=== PATIENT | female | born 1935 | race American Indian/Alaskan Native ===

== ENCOUNTER 2017-05-10 16:18 | Inpatient (IN) | payer MEDICARE, OTHER ==
[2017-05-10 16:18] VITALS: BMI 30.6
[2017-05-10 18:14] LABS: BASO % 0.3 % (0.0-2.0); EOS # 0.1 K/uL (0.0-0.7); EOS % 1.7 % (0.0-4.0); HEMATOCRIT 37.8 % (34.0-47.0); LYMPH % 21.7 % (20.0-40.0); MEAN CELL VOLUME 84.8 fL (81.0-99.0); MEAN CORPUSCULAR HEMOGLOBIN 27.2 pg (27.0-31.0); MEAN CORPUSCULAR HGB CONC 32.1 g/dL (33.0-37.0); MEAN PLATELET VOLUME 7.9 fL (7.2-11.7); MONO # 0.4 K/uL (0.0-0.8); MONO % 8.2 % (0.0-10.0); RED CELL DISTRIBUTION WIDTH 15.9 % (11.5-14.5); WHITE BLOOD COUNT 4.7 K/uL (4.8-10.8)
[2017-05-10 18:15] LABS: CHLORIDE 96 mmol/L (98-107); SODIUM 132 mmol/L (132-148)
[2017-05-10 18:17] LABS: CHOLESTEROL 207 mg/dL (0-199); POTASSIUM 6.1 mmol/L (3.6-5.2)
[2017-05-10 18:18] LABS: ALKALINE PHOSPHATASE 122 U/L (38-126); ALT/SGPT 15 U/L (9-52); AST/SGOT 32 U/L (14-36); BILIRUBIN,TOTAL 0.7 mg/dL (0.2-1.3); BLOOD UREA NITROGEN 42 mg/dL (7-17); CALCIUM 9.5 mg/dl (8.6-10.4); CARBON DIOXIDE 20 mmol/L (22-30); GFR AFRICAN-AMERICAN 30; GLUCOSE,RANDOM 92 mg/dL (65-105); TOTAL PROTEIN 8.8 g/dL (6.3-8.3)
[2017-05-10 18:28] LABS: ALB/GLOB RATIO 0.8 (1.0-2.1)
--- NOTE | 2017-05-10 19:08 | CT ---
PROCEDURE: CT HEAD WITHOUT CONTRAST. HISTORY: Dizzy. Left face and left arm numbness. COMPARISON: Comparison is made to 02/05/2016 TECHNIQUE: Axial computed tomography images were obtained through the head/brain without intravenous contrast. Radiation dose: Total exam DLP = 950.19 mGy-cm. This CT exam was performed using one or more of the following dose reduction techniques: Automated exposure control, adjustment of the mA and/or kV according to patient size, and/or use of iterative reconstruction technique. FINDINGS: HEMORRHAGE: No intracranial hemorrhage. BRAIN: No mass effect or edema. Mild atrophy and mild chronic microvascular white matter ischemic disease are again seen. VENTRICLES: Unremarkable. No hydrocephalus. CALVARIUM: Unremarkable. PARANASAL SINUSES: Unremarkable as visualized. No significant inflammatory changes. MASTOID AIR CELLS: Unremarkable as visualized. No inflammatory changes. OTHER FINDINGS: None. IMPRESSION: No evidence of acute intracranial hemorrhage intracranial collection territorial infarct mass effect or midline shift. Re- demonstration of mild atrophy and chronic microvascular white matter ischemic disease.
--- NOTE | 2017-05-10 19:14 | C.PDOC ---
Time Seen by Provider: 05/10/17 17:07 Chief Complaint (Nursing): Dizziness/Lightheaded History Per: Patient Onset/Duration Of Symptoms: Hrs (since this morning) Current Symptoms Are (Timing): Still Present Fall Associated With With Symptoms: No Severity: Moderate Additional History Per: Prior Records - Symptoms Of CVA Character Of Deficits: Left: Sensory Loss, Face: Sensory Loss, Arm: Sensory Loss Recent Head Trauma: No Past Medical History Reviewed: Historical Data, Nursing Documentation, Vital Signs Vital Signs: Last Vital Signs Temp 98.8 F 05/10/17 16:45 Pulse 66 05/10/17 16:45 Resp 18 05/10/17 16:45 BP 150/69 05/10/17 16:45 Pulse Ox 100 05/10/17 19:18 - Medical History PMH: Anemia, Arthritis, Asthma, Diverticulitis, Gastritis, HTN, Hyperlipidemia, Malignancy (left breast cancer) - [facility] Procedures OPEN AND OTHER LEFT HEMICOLECTOMY (11/03/13) PACKED CELL TRANSFUSION (11/03/13) URETERAL CATHETERIZATION (11/03/13) Family History: States: Unknown Family Hx - Social History Hx Tobacco Use: No Hx Alcohol Use: Yes (past smoker) Hx Substance Use: No - Immunization History Hx Tetanus Toxoid Vaccination: No Hx Influenza Vaccination: Yes Hx Pneumococcal Vaccination: Yes Review Of Systems Except As Marked, All Systems Reviewed And Found Negative. Constitutional: Negative for: Fever, Weakness Cardiovascular: Negative for: Chest Pain Respiratory: Negative for: Shortness of Breath Gastrointestinal: Negative for: Vomiting, Abdominal Pain Musculoskeletal: Negative for: Neck Pain Skin: Negative for: Rash Neurological: Positive for: Numbness (left face), Dizziness. Negative for: Weakness, Headache Physical Exam - Physical Exam Appears: Non-toxic, No Acute Distress Skin: Normal Color, Warm, Dry, No Rash Head: Atraumatic, Normacephalic Eye(s): bilateral: PERRL, EOMI Neck: Normal ROM, Supple Cardiovascular: Rhythm Regular Respiratory: Normal Breath Sounds, No Accessory Muscle Use Gastrointestinal/Abdominal: Soft, No Tenderness Back: No CVA Tenderness Extremity: Normal ROM Neurological/Psych: Oriented x3, Normal Motor ED Course And Treatment - Laboratory Results Result Diagrams: 05/10/17 18:02 05/10/17 19:17 Lab Interpretation: Abnormal ECG: Interpreted By Me, Viewed By Me ECG Rhythm: Sinus Rhythm, 1st Degree HB ECG Interpretation: No Acute Changes Rate From EC O2 Sat by Pulse Oximetry: 100 Pulse Ox Interpretation: Normal - Radiology CXR: Interpreted by Me, Viewed By Me CXR Interpretation: Yes: No Acute Disease - CT Scan/US CT head Other Rad Studies (CT/US): Read By Radiologist, Radiology Report Reviewed CT/US Interpretation: IMPRESSION: No evidence of acute intracranial hemorrhage intracranial collection territorial infarct mass effect or midline shift. Re- demonstration of mild atrophy and chronic microvascular white matter ischemic disease. Disposition - Disposition Disposition Time: 19:55 Condition: SERIOUS - Clinical Impression Clinical Impression: Left facial numbness, Hyperkalemia, Worsening renal function Physician Patient Turnover Patient Signed Over To: Kodi Osman Handoff Comments: to reassess pt and call PMD for admission.
[2017-05-10] MEDS: Sodium Chloride 0.9% 1,000 ML IV ONE ×2 (19:18→19:24)
[2017-05-10] MEDS ORDERED: Sodium Chloride 0.9% 500 ML IV ONE (19:18)
[2017-05-10 19:30] LABS: CALCIUM 9.1 mg/dl (8.6-10.4)
[2017-05-10 19:31] LABS: POTASSIUM 5.8 mmol/L (3.6-5.2)
[2017-05-10] MEDS: Dextrose 5%/0.45% NS 1,000 ML IV SCH (23:15)
--- NOTE | 2017-05-10 23:23 | CP.PCM.HP ---
History of Present Illness - History of Present Illness History of Present Illness: CC: Dizziness,Left facial numbness, Hyperkalemia, Worsening renal function HPI: pt is an elderly AA female well known to me with PMH of SLE, HTN, Diverticuloisis, complaint with diet, medication and follow up, today she developed dizziness described as spinning sensation like room is spinning around her along with left sided numbness of face, pt was seen by me in office and advised to come here in hospital for further evalaution pt denies any tingling, numbess in feet, she margaux cough, sore throat, chest pain, abdominal pain, nausea/ vomitting, headache Present on Admission - Present on Admission Any Indicators Present on Admission: Yes Review of Systems - Review of Systems Systems not reviewed;Unavailable: Acuity of Condition - Constitutional Constitutional: Fatigue, Lethargy. absent: As Per HPI, Anorexia, Chills, Daytime Sleepiness, Excessive Sweating, Fever, Frequent Falls, Headache, Increased Appetite, Malaise, Night Sweats, Snoring, Sleep Apnea, Weight Gain, Weight Loss, Weakness, Other - EENT Eyes: absent: As Per HPI, Blind Spots, Blurred Vision, Change in Vision, Decreased Night Vision, Diplopia, Discharge, Dry Eye, Exophthalmos, Floaters, Irritation, Itchy Eyes, Loss of Peripheral Vision, Pain, Photophobia, Requires Corrective Lenses, Sees Flashes, Spots in Vision, Tunnel Vision, Other Visual Disturbances, Loss of Vision, Other Nose/Mouth/Throat: absent: As Per HPI, Epistaxis, Nasal Congestion, Nasal Discharge, Nasal Obstruction, Nasal Trauma, Nose Pain, Post Nasal Drip, Sinus Pain, Sinus Pressure, Bleeding Gums, Change in Voice, Dental Pain, Dry Mouth, Dysphagia, Halitosis, Hoarsness, Lip Swelling, Mouth Lesions, Mouth Pain, Odynophagia, Sore Throat, Throat Swelling, Tongue Swelling, Facial Pain, Neck Pain, Neck Mass, Other - Cardiovascular Cardiovascular: absent: As Per HPI, Acrocyanosis, Chest Pain, Chest Pain at Rest , Chest Pain with Activity, Claudication, Diaphoresis, Dyspnea, Dyspnea on Exertion, Edema, Irregular Heart Rhythm, Pain Radiating to Arm/Neck/Jaw, Leg Edema, Leg Ulcers, Lightheadedness, Orthopnea, Palpitations, Paroxysmal Nocturnal Dyspnea, Pedal Edema, Radiating Pain, Rapid Heart Rate, Slow Heart Rate, Syncope, Other - Respiratory Respiratory: absent: As Per HPI, Cough, Dyspnea, Hemoptysis, Dyspnea on Exertion , Wheezing, Snoring, Stridor, Pain on Inspiration, Chest Congestion, Excessive Mucous Production, Change in Mucous Color, Pain with Coughing, Other - Gastrointestinal Gastrointestinal: absent: As Per HPI, Abdominal Pain, Belching, Bloating, Change in Bowel Habits, Change in Stool Character, Coffee Ground Emesis, Constipation, Cramping, Diarrhea, Dyspepsia, Dysphagia, Early Satiety, Excessive Flatus, Fecal Incontinence, Heartburn, Hematemesis, Hematochezia, Loose Stools, Melena, Nausea, Odynophagia, Temesmus, Vomiting, Other - Genitourinary Genitourinary: absent: As Per HPI, Change in Urinary Stream, Difficulty Urinating, Dysuria, Flank Pain, Hematuria, Pyuria, Nocturia, Urinary Incontinence, Urinary Frequency, Urinary Hesitance, Urinary Urgency, Voiding Freq/Small Amts, Freq UTI, Hx Renal/Bladder Calculi, Hx /Renal Surgery, Bladder Distension, Other - Musculoskeletal Musculoskeletal: Arthralgias, Limited Range of Motion, Numbness. absent: As Per HPI, Abnormal Gait, Atrophy, Back Pain, Deformity, Joint Swelling, Loss of Height, Muscle Cramps, Muscle Weakness, Myalgias, Neck Pain, Radiating Pain into Limb, Stiffness, Tingling, Other - Integumentary Integumentary: Dry Skin, Erythema, Rash - Neurological Neurological: Dizziness, Numbness, Focal Weakness - Psychiatric Psychiatric: absent: As Per HPI, Abnormal Sleep Pattern, Anhedonia, Anxiety, Auditory Hallucinations, Behavioral Changes, Change in Appetite, Change in Libido, Confusion, Depression, Difficulty Concentrating, Hallucinations, Homicidal Ideation, Hopelessness, Irritability, Memory Loss, Mood Swings, Panic Attacks, Paranoia, Suicidal Ideation, Visual Hallucinations, Tactile Hallucinations, Other Past Patient History - Infectious Disease Hx of Infectious Diseases: None - Past Medical History & Family History Past Medical History?: Yes - Past Social History Smoking Status: Former Smoker - CARDIAC Hx Hypertension: Yes - PULMONARY Hx Asthma: Yes - NEUROLOGICAL Hx Neurological Disorder: Yes Hx Vertigo: Yes - HEENT Hx HEENT Problems: No - RENAL Hx Chronic Kidney Disease: No - ENDOCRINE/METABOLIC Hx Endocrine Disorders: Yes Hx Systemic Lupus Erythematosus: Yes - HEMATOLOGICAL/ONCOLOGICAL Hx Anemia: Yes - INTEGUMENTARY Hx Dermatological Problems: No - MUSCULOSKELETAL/RHEUMATOLOGICAL Hx Arthritis: Yes - GASTROINTESTINAL Hx Diverticulitis: Yes Hx Gastritis: Yes - GENITOURINARY/GYNECOLOGICAL Hx Genitourinary Disorders: No - PSYCHIATRIC Hx Substance Use: No - SURGICAL HISTORY Hx Surgeries: Yes Hx Hysterectomy: Yes Hx Mastectomy: Yes (LEFT) Other/Comment: COLON resection - ANESTHESIA Hx Anesthesia: Yes Hx Anesthesia Reactions: No Hx Malignant Hyperthermia: No Meds Allergies/Adverse Reactions: Allergies Allergy/AdvReac Type Severity Reaction Status Date / Time No Known Allergies Allergy Verified 11/13/16 04:47 Physical Exam - Constitutional Appears: No Acute Distress - Head Exam Head Exam: ATRAUMATIC, NORMAL INSPECTION, NORMOCEPHALIC - Eye Exam Eye Exam: EOMI, Normal appearance, PERRL Pupil Exam: NORMAL ACCOMODATION, PERRL - Respiratory Exam Respiratory Exam: Decreased Breath Sounds, Rales, Rhonchi - Cardiovascular Exam Cardiovascular Exam: REGULAR RHYTHM - GI/Abdominal Exam GI & Abdominal Exam: Normal Bowel Sounds, Soft. absent: Tenderness - Neurological Exam Neurological exam: Alert, Normal Gait, Oriented x3 - Psychiatric Exam Psychiatric exam: Normal Affect, Normal Mood - Skin Skin Exam: Erythema, Rash Results - Vital Signs Recent Vital Signs: Last Vital Signs Temp 97.7 F 05/10/17 20:53 Pulse 72 05/10/17 22:28 Resp 20 05/10/17 22:28 BP 150/79 05/10/17 22:28 Pulse Ox 99 05/10/17 22:28 - Labs Result Diagrams: 05/10/17 18:02 05/10/17 19:17 Assessment & Plan (1) SLE (systemic lupus erythematosus) Status: Acute (2) Left facial numbness Assessment and Plan: facial symmetry is intact rule out CVA in post fossa TIA seizure precautions neuro check admit pt Status: Acute (3) Hypertension Status: Chronic
--- NOTE | 2017-05-11 08:32 | RAD ---
HISTORY: Dizzy. Left face numbness. COMPARISON: No prior. FINDINGS: LUNGS: Hyperinflation suggestive for COPD and or emphysematous changes. Some patchy increased markings at the lung bases. Small nodular density in the right midlung zone may represent vessel on end. Right paratracheal prominence may represent prominent vasculature. PLEURA: As above. CARDIOVASCULAR: Tortuous aorta. Mild cardiomegaly. Calcification at the aortic knob. OSSEOUS STRUCTURES: Degenerative changes in the spine and shoulders. VISUALIZED UPPER ABDOMEN: Normal. OTHER FINDINGS: None. IMPRESSION: Hyperinflation suggestive for COPD and or emphysematous changes. Some patchy increased markings at the lung bases. Small nodular density in the right midlung zone may represent vessel on end. Right paratracheal prominence may represent prominent vasculature.
[2017-05-11] MEDS: Metoprolol Succinate 50 mg XL Tab PO SCH (10:39)
[2017-05-11] MEDS: Dextrose 5%/0.45% NS 1,000 ML IV SCH (10:39)
[2017-05-11] MEDS: Pantoprazole 40 mg EC Tab PO SCH (10:39)
--- NOTE | 2017-05-11 14:20 | MRI ---
PROCEDURE: MRI BRAIN WITHOUT CONTRAST HISTORY: facial numbness COMPARISON: 03/03/2016 TECHNIQUE: Multiplanar, multisequence MR images of the brain were obtained without intravenous contrast enhancement. FINDINGS: HEMORRHAGE: No appreciable acute intracranial hemorrhage. There is a single tiny focus of hemosiderin seen on the gradient images in the posterior parietal periventricular region, new from prior study. No other area of hemosiderin is clearly seen. DWI: No evidence of an acute or early subacute infarction. BRAIN PARENCHYMA: Stable mild diffuse cerebral atrophy is noted. No mass effect is identified. Stable mild small vessel changes are seen in the white matter tracts. No cerebellopontine angle mass is noted. No cortical effacement is seen. VENTRICLES: Unremarkable. No hydrocephalus. CRANIUM: Unremarkable. ORBITS: Grossly unremarkable. PARANASAL SINUSES/MASTOIDS: Mild mucosal changes are seen in the sinuses. VASCULAR SYSTEM: Skull base flow voids intact. OTHER FINDINGS: Mastoid air cells are stable. Posterior nasopharynx is unremarkable. IMPRESSION: No evidence of recent infarct. Stable mild cerebral cortical atrophy and small vessel changes. Single tiny nonspecific focus of hemosiderin in the posterior left periventricular white matter.
[2017-05-11 18:01] LABS: POTASSIUM 5.1 mmol/L (3.6-5.2)
[2017-05-11 18:04] LABS: CALCIUM 8.6 mg/dl (8.6-10.4)
--- NOTE | 2017-05-11 22:45 | CP.PCM.PN ---
Subjective - Date & Time of Evaluation Date of Evaluation: 05/11/17 Objective - Vital Signs/Intake and Output Vital Signs (last 24 hours): Temp Pulse Resp BP Pulse Ox 97.9 F 69 20 149/72 99 05/11/17 15:47 05/11/17 15:47 05/11/17 15:47 05/11/17 15:47 05/11/17 15:47 - Medications Medications: Current Medications Amlodipine Besylate (Norvasc) 5 mg PO DAILY [facility] Last Admin: 05/11/17 10:39 Dose: 5 mg Aspirin (Aspirin Chewable) 81 mg PO DAILY [facility] Last Admin: 05/11/17 10:39 Dose: 81 mg Ezetimibe (Zetia) 10 mg PO DAILY [facility] Last Admin: 05/11/17 10:39 Dose: 10 mg Heparin Sodium (Porcine) (Heparin) 5,000 units SC Q8 [facility] Last Admin: 05/11/17 22:08 Dose: 5,000 units Hydroxychloroquine Sulfate (Plaquenil) 200 mg PO BID [facility] Last Admin: 05/11/17 18:30 Dose: 200 mg Dextrose/Sodium Chloride (Dextrose 5%/0.45% Ns 1000 Ml) 1,000 mls @ 80 mls/hr IV .[id number] [facility] Last Admin: 05/11/17 10:39 Dose: 80 mls/hr Metoprolol Succinate (Toprol Xl) 50 mg PO DAILY [facility] Last Admin: 05/11/17 10:39 Dose: 50 mg Pantoprazole Sodium (Protonix Ec Tab) 40 mg PO DAILY [facility] Last Admin: 05/11/17 10:39 Dose: 40 mg - Labs Labs: 05/11/17 17:35 PT 11.0 SECONDS (9.7-12.2) 05/10/17 18:02 INR 1.0 05/10/17 18:02 APTT 43 SECONDS (21-34) H 05/10/17 18:02 Assessment and Plan (1) SLE (systemic lupus erythematosus) Status: Acute (2) Left facial numbness Status: Acute (3) Hypertension Status: Chronic
[2017-05-12] MEDS: Dextrose 5%/0.45% NS 1,000 ML IV SCH (04:30)
[2017-05-12 04:37] VITALS: RESP 20
[2017-05-12 09:03] VITALS: BP 156/68; TEMP 98.1
[2017-05-12] MEDS: Metoprolol Succinate 50 mg XL Tab PO SCH (09:33)
[2017-05-12] MEDS: Pantoprazole 40 mg EC Tab PO SCH (09:33)
--- NOTE | 2017-05-12 11:06 | CP.PCM.PN ---
Subjective - Date & Time of Evaluation Date of Evaluation: 05/12/17 Time of Evaluation: 10:45 - Subjective Subjective: Pt seen and examined today , denies any chest pain , sob, palpitations, dizziness, numbness/ tinglings to the face resolved No overnight events recorded on monitor No overnight events reported by RN BUN/CR - improved - 33/1.6<40/1.9 Objective - Vital Signs/Intake and Output Vital Signs (last 24 hours): Temp Pulse Resp BP Pulse Ox 98.1 F 73 20 156/68 H 98 05/12/17 09:02 05/12/17 09:02 05/12/17 09:02 05/12/17 09:02 05/12/17 09:02 Intake and Output: 05/12/17 05/12/17 06:59 18:59 Intake Total 1720 Balance 1720 - Medications Medications: Current Medications Amlodipine Besylate (Norvasc) 5 mg PO DAILY [facility] Last Admin: 05/12/17 09:33 Dose: 5 mg Aspirin (Aspirin Chewable) 81 mg PO DAILY [facility] Last Admin: 05/12/17 09:33 Dose: 81 mg Ezetimibe (Zetia) 10 mg PO DAILY [facility] Last Admin: 05/12/17 09:33 Dose: 10 mg Heparin Sodium (Porcine) (Heparin) 5,000 units SC Q8 [facility] Last Admin: 05/12/17 06:35 Dose: 5,000 units Hydroxychloroquine Sulfate (Plaquenil) 200 mg PO BID [facility] Last Admin: 05/12/17 09:33 Dose: 200 mg Dextrose/Sodium Chloride (Dextrose 5%/0.45% Ns 1000 Ml) 1,000 mls @ 80 mls/hr IV .[id number] [facility] Last Admin: 05/12/17 04:30 Dose: 80 mls/hr Metoprolol Succinate (Toprol Xl) 50 mg PO DAILY [facility] Last Admin: 05/12/17 09:33 Dose: 50 mg Pantoprazole Sodium (Protonix Ec Tab) 40 mg PO DAILY [facility] Last Admin: 05/12/17 09:33 Dose: 40 mg - Labs Labs: 05/11/17 17:35 PT 11.0 SECONDS (9.7-12.2) 05/10/17 18:02 INR 1.0 05/10/17 18:02 APTT 43 SECONDS (21-34) H 05/10/17 18:02 - Constitutional Appears: Well, No Acute Distress - Respiratory Exam Respiratory Exam: Clear to Ausculation Bilateral, NORMAL BREATHING PATTERN - Cardiovascular Exam Cardiovascular Exam: REGULAR RHYTHM, +S1, +S2 - Neurological Exam Neurological Exam: Alert, Oriented x3 Assessment and Plan - Assessment and Plan (Free Text) Assessment: 82 YR female admitted for dizziness/ near syncope/ hyperkalemia/ renal insufficiency/ dehydration BUN/CR - improved after IVF and back to base line -33/1.6 <40/1.9 K- improved - 5.1< 5.8 CT HEAD - No evidence of acute intracranial hemorrhage intracranial collection territorial infarct mass effect or midline shift. Re- demonstration of mild atrophy and chronic microvascular white matter ischemic disease. MRI- No evidence of recent infarct. Stable mild cerebral cortical atrophy and small vessel changes. Single tiny nonspecific focus of hemosiderin in the posterior left periventricular white matter. D/W with Dr. Ivory , stable for discharge home today and f/u with Dr. Ivory office in 1 week Discharge plan discussed with patient who understands and agree with plan Pt instructed to returns to ED if symptoms returns
[2017-05-12 11:36] VITALS: PULSE 69; O2SAT 99
--- NOTE | 2017-05-12 23:01 | CP.PCM.DIS ---
Provider - Provider Date of Admission: 05/10/17 20:12 Attending physician: Waldemar Ivory MD Time Spent in preparation of Discharge (in minutes): 45 Diagnosis - Discharge Diagnosis (1) SLE (systemic lupus erythematosus) Status: Acute (2) Left facial numbness Status: Acute (3) Hypertension Status: Chronic Hospital Course - Lab Results Lab Results: Most Recent Lab Values WBC 4.7 K/uL (4.8-10.8) L 05/10/17 18:02 RBC 4.46 Mil/uL (3.80-5.20) 05/10/17 18:02 Hgb 12.1 g/dL (11.0-16.0) 05/10/17 18:02 Hct 37.8 % (34.0-47.0) 05/10/17 18:02 MCV 84.8 fL (81.0-99.0) D 05/10/17 18:02 MCH 27.2 pg (27.0-31.0) 05/10/17 18:02 MCHC 32.1 g/dL (33.0-37.0) L 05/10/17 18:02 RDW 15.9 % (11.5-14.5) H 05/10/17 18:02 Plt Count 231 K/uL (130-400) 05/10/17 18:02 MPV 7.9 fL (7.2-11.7) 05/10/17 18:02 Neut % (Auto) 68.1 % (50.0-75.0) 05/10/17 18:02 Lymph % (Auto) 21.7 % (20.0-40.0) 05/10/17 18:02 [place] % (Auto) 8.2 % (0.0-10.0) 05/10/17 18:02 Eos % (Auto) 1.7 % (0.0-4.0) 05/10/17 18:02 Baso % (Auto) 0.3 % (0.0-2.0) 05/10/17 18:02 Neut # 3.2 K/uL (1.8-7.0) 05/10/17 18:02 Lymph # 1.0 K/uL (1.0-4.3) 05/10/17 18:02 [place] # 0.4 K/uL (0.0-0.8) 05/10/17 18:02 Eos # 0.1 K/uL (0.0-0.7) 05/10/17 18:02 Baso # 0.0 K/uL (0.0-0.2) 05/10/17 18:02 PT 11.0 SECONDS (9.7-12.2) 05/10/17 18:02 INR 1.0 05/10/17 18:02 APTT 43 SECONDS (21-34) H 05/10/17 18:02 Sodium 132 mmol/L (132-148) 05/11/17 17:35 Potassium 5.1 mmol/L (3.6-5.2) 05/11/17 17:35 Chloride 103 mmol/L (98-107) 05/11/17 17:35 Carbon Dioxide 17 mmol/L (22-30) L 05/11/17 17:35 Anion Gap 17 (10-20) 05/11/17 17:35 BUN 33 mg/dL (7-17) H 05/11/17 17:35 Creatinine 1.6 MG/DL (0.7-1.2) H 05/11/17 17:35 Est GFR ( Amer) 37 05/11/17 17:35 Est GFR (Non-Af Amer) 31 05/11/17 17:35 POC Glucose (mg/dL) 89 mg/dL (65-110) 05/12/17 11:46 Random Glucose 93 mg/dL (65-105) 05/11/17 17:35 Hemoglobin A1c 5.9 % (4.2-6.5) 05/10/17 18:02 Calcium 8.6 mg/dl (8.6-10.4) 05/11/17 17:35 Total Bilirubin 0.7 mg/dL (0.2-1.3) 05/10/17 18:02 AST 32 U/L (14-36) 05/10/17 18:02 ALT 15 U/L (9-52) 05/10/17 18:02 Alkaline Phosphatase 122 U/L (38-126) 05/10/17 18:02 Troponin I < 0.0120 ng/mL (0.00-0.120) 05/10/17 18:02 Total Protein 8.8 g/dL (6.3-8.3) H 05/10/17 18:02 Albumin 3.9 g/dL (3.5-5.0) 05/10/17 18:02 Globulin 4.9 gm/dL (2.2-3.9) H 05/10/17 18:02 Albumin/Globulin Ratio 0.8 (1.0-2.1) L 05/10/17 18:02 Triglycerides 227 mg/dL (0-149) H 05/10/17 18:02 Cholesterol 207 mg/dL (0-199) H 05/10/17 18:02 LDL Cholesterol Direct 109 mg/dL (0-129) 05/10/17 18:02 HDL Cholesterol 55 mg/dL (30-70) 05/10/17 18:02 Blood Type O POSITIVE 05/10/17 18:02 Antibody Screen Negative 05/10/17 18:02 - Hospital Course Hospital Course: 82 YR female admitted for dizziness/ near syncope/ hyperkalemia/ renal insufficiency/ dehydration BUN/CR - improved after IVF and back to base line -33/1.6 <40/1.9 K- improved - 5.1< 5.8 CT HEAD - No evidence of acute intracranial hemorrhage intracranial collection territorial infarct mass effect or midline shift. Re- demonstration of mild atrophy and chronic microvascular white matter ischemic disease. MRI- No evidence of recent infarct. Stable mild cerebral cortical atrophy and small vessel changes. Single tiny nonspecific focus of hemosiderin in the posterior left periventricular white matter.stable for discharge home today and f/u with me in office in 1 week Discharge plan discussed with patient who understands and agree with plan Pt instructed to returns to ED if symptoms returns Discharge Exam - Head Exam Head Exam: ATRAUMATIC, NORMAL INSPECTION, NORMOCEPHALIC - Eye Exam Eye Exam: EOMI, Normal appearance, PERRL Pupil Exam: NORMAL ACCOMODATION, PERRL - ENT Exam ENT Exam: Mucous Membranes Moist - Respiratory Exam Respiratory Exam: Clear to PA & Lateral, NORMAL BREATHING PATTERN - Cardiovascular Exam Cardiovascular Exam: REGULAR RHYTHM, +S1, +S2 - GI/Abdominal Exam GI & Abdominal Exam: Normal Bowel Sounds Discharge Plan - Follow Up Plan Condition: SERIOUS Disposition: HOME/ ROUTINE Instructions: Dehydration (DC), Acute Kidney Injury (DC), Heart Healthy Diet ( DC), Hyperkalemia (DC) Additional Instructions: Please f/u with Dr. Ivory office in 1 week Continue medication as per Med. Rec. Referrals: Waldemar Ivory MD [Staff Provider] -
--- NOTE | 2017-05-13 00:29 | CARD ---
APPROVED REPORT EKG Measurement Heart [id number] <Conclusion> Sinus rhythm with 1st degree AV block Otherwise normal ECG
== END 2017-05-12 12:30 | disposition home or self-care (01) | DRG 546 ==
LOC: C.ER 16:18 → C.9E 20:12 → C.6T 22:11
PROVIDERS: ADMIT Internal Medicine; ATTEND Internal Medicine
DX: M32.9 Systemic lupus erythematosus, unspecified (principal); G45.9 Transient cerebral ischemic attack, unspecified; E87.5 Hyperkalemia; E86.0 Dehydration; I10 Essential (primary) hypertension; R20.0 Anesthesia of skin; N28.9 Disorder of kidney and ureter, unspecified; J45.909 Unspecified asthma, uncomplicated; Z90.710 Acquired absence of both cervix and uterus; Z85.3 Personal history of malignant neoplasm of breast; Z90.12 Acquired absence of left breast and nipple; Z87.891 Personal history of nicotine dependence

== ENCOUNTER 2018-11-28 08:01 | Day surgery (SDC) | payer MEDICARE, OTHER ==
[2018-03-08 12:21] VITALS: BMI 30.6
[2018-11-28] MEDS ORDERED: Lactated Ringer's 1,000 ML IV ONE (09:17)
--- NOTE | 2018-11-28 09:19 | CP.SDSHP ---
Same Day Surgery H & P - History Proposed Procedure: COLONSCOPY Pre-Op Diagnosis: SEE NOTES - Previous Medical/Surgical History Cardiac: Hypertension Neuro: Other Misc: Other Pain: 4.Moderate Pain - Allergies Allergies: Allergies No Known Allergies Allergy (Verified 11/28/18 08:22) - Physical Exam General Appearance: N Vital Signs: Vital Signs 11/28/18 08:20 Temperature 98.6 F Pulse Rate 80 Respiratory 20 Rate Blood Pressure 176/68 H O2 Sat by Pulse 100 Oximetry Mental Status: Alert & Oriented x3 Neuro: WNL Heart: Other Lungs: WNL GI: Other - {Optional Preform as Required} Breast: WNL Abdomen: Other Rectal: Other Integument: WNL : WNL Ortho: WNL ENT: WNL - Impression Pt. Evaluated Today:Candidate for Anesthesia & Procedure: Yes - Date & Time Time: Short Stay Discharge - Short Stay Discharge Admitting Diagnosis/Reason for Visit: CHANGE IN BOWEL HABIT Disposition: HOME/ ROUTINE
[2018-11-28] MEDS ORDERED: Propofol 10 mg/ml Inj (20 ML) ONE (09:26)
[2018-11-28] MEDS ORDERED: Phenylephrine 10 mg/ml Inj ONE (09:42)
[2018-11-28 09:48] VITALS: TEMP 97.8
[2018-11-28] MEDS ORDERED: Belladonna-Phenobarbital PO ONE (09:55)
[2018-11-28 10:24] VITALS: PULSE 82
[2018-11-28 12:13] VITALS: BP 157/83; RESP 18; O2SAT 98
== END 2018-11-28 11:30 | disposition home or self-care (01) ==
LOC: C.ENDO 08:01
PROVIDERS: ATTEND Specialist
DX: R19.4 Change in bowel habit (principal); K57.30 Diverticulosis of large intestine without perforation or abscess without bleeding; K64.8 Other hemorrhoids; K52.9 Noninfective gastroenteritis and colitis, unspecified
CPT/HCPCS: 45380; 88305; J2001; J2370; J2704; J7120

== ENCOUNTER 2018-12-02 06:51 | Day surgery (SDC) | payer MEDICARE, OTHER ==
[2018-03-08 12:21] VITALS: BMI 30.6
[2018-12-02 07:16] VITALS: O2SAT 100
--- NOTE | 2018-12-02 09:15 | CP.SDSHP ---
Same Day Surgery H & P - History Proposed Procedure: EGD Pre-Op Diagnosis: SEE NOTES - Previous Medical/Surgical History Cardiac: Hypertension Endocrine/Metabolic: Other Neuro: Other Misc: Other - Allergies Allergies: Allergies No Known Allergies Allergy (Verified 11/28/18 08:22) - Physical Exam General Appearance: N Vital Signs: Vital Signs 12/02/18 07:00 Temperature 97.5 F L Pulse Rate 80 Respiratory 20 Rate Blood Pressure 148/70 O2 Sat by Pulse 100 Oximetry Mental Status: Alert & Oriented x3 Neuro: WNL Heart: Other Lungs: WNL GI: Other - {Optional Preform as Required} Breast: WNL Abdomen: Other Rectal: WNL Integument: WNL : WNL Ortho: Other ENT: WNL - Impression Pt. Evaluated Today:Candidate for Anesthesia & Procedure: Yes - Date & Time Time: 09:14 Short Stay Discharge - Short Stay Discharge Admitting Diagnosis/Reason for Visit: DYSPEPSIA Disposition: HOME/ ROUTINE
[2018-12-02] MEDS ORDERED: Propofol 10 mg/ml Inj (20 ML) ONE (09:16)
[2018-12-02] MEDS ORDERED: Lidocaine Hydrochloride 5 ML INJ ONE (09:16)
[2018-12-02] MEDS ORDERED: Belladonna-Phenobarbital PO STA (09:25)
[2018-12-02 09:52] VITALS: TEMP 97.6
[2018-12-02 09:53] VITALS: RESP 17
[2018-12-02] MEDS ORDERED: Sucralfate 1 gm/10 ml Oral Susp UD PO ONE (09:55)
[2018-12-02 11:36] VITALS: BP 154/73; PULSE 75
== END 2018-12-02 10:50 | disposition home or self-care (01) ==
LOC: C.ENDO 06:51
PROVIDERS: ATTEND Specialist
DX: K30 Functional dyspepsia (principal); K44.9 Diaphragmatic hernia without obstruction or gangrene; K29.61 Other gastritis with bleeding
CPT/HCPCS: 43239; 88305; C9113; J2704

== ENCOUNTER 2019-03-30 10:48 | Observation (INO) | payer MEDICARE, OTHER ==
[2019-03-30 10:48] VITALS: BMI 30.6
[2019-03-30] MEDS ORDERED: Sodium Chloride 0.9% 1,000 ML IV ONE (11:26)
--- NOTE | 2019-03-30 11:32 | C.PDOC ---
History Of Present Illness Patient is a 83 year old female, with a hx of lupus, diverticulitis, HTN, who presents to the ED c/o left sided abdominal pain, constipation, and nausea for the past few days. Patient also reports "facial swelling/joint pain" that is consistent with her lupus flare-ups. She denies any fevers, chills, CP, or SOB. Time Seen by Provider: 03/30/19 10:54 Chief Complaint (Nursing): Abdominal Pain History Per: Patient History/Exam Limitations: no limitations Onset/Duration Of Symptoms: Days Current Symptoms Are (Timing): Still Present Quality Of Discomfort: "Pain" Associated Symptoms: Nausea, Constipation Recent travel outside of the [place]: No Additional History Per: Patient Past Medical History Reviewed: Historical Data, Nursing Documentation, Vital Signs Vital Signs: Last Vital Signs Temp 98.1 F 03/30/19 11:03 Pulse 67 03/30/19 11:03 Resp 18 03/30/19 11:03 BP 157/72 H 03/30/19 11:03 Pulse Ox 100 03/30/19 11:03 Primary Care Provider: Waldemar Ivory - Medical History PMH: Anemia, Arthritis, Asthma, COPD, Diverticulitis, Gastritis, HTN, Hypercholesterolemia, Hyperlipidemia, Malignancy (left breast cancer) Denies: Chronic Kidney Disease Surgical History: Endoscopy - [facility] Procedures OPEN AND OTHER LEFT HEMICOLECTOMY (11/03/13) PACKED CELL TRANSFUSION (11/03/13) URETERAL CATHETERIZATION (11/03/13) Family History: States: Unknown Family Hx - Social History Hx Tobacco Use: No Hx Alcohol Use: No Hx Substance Use: No - Immunization History Hx Tetanus Toxoid Vaccination: No Hx Influenza Vaccination: Yes Hx Pneumococcal Vaccination: Yes Review Of Systems Except As Marked, All Systems Reviewed And Found Negative. Constitutional: Negative for: Fever, Chills ENT: Positive for: Other (facial swelling ) Cardiovascular: Negative for: Chest Pain Respiratory: Negative for: Shortness of Breath Gastrointestinal: Positive for: Nausea, Abdominal Pain (left sided ), Co nstipation Physical Exam - Physical Exam Appears: Non-toxic, No Acute Distress Skin: Normal Color, Warm, Dry Head: Atraumatic, Normacephalic Oral Mucosa: Moist Neck: Normal ROM, Supple Chest: Symmetrical, No Deformity Cardiovascular: Rhythm Regular, No Murmur Respiratory: Normal Breath Sounds, No Rales, No Rhonchi, No Wheezing Gastrointestinal/Abdominal: Soft, Tenderness (left sided abdominal ), No Guarding, No Rebound Extremity: Normal ROM Neurological/Psych: Oriented x3, Normal Speech ED Course And Treatment - Laboratory Results Result Diagrams: 03/30/19 11:57 03/31/19 06:42 O2 Sat by Pulse Oximetry: 100 (on RA) Pulse Ox Interpretation: Normal - CT Scan/US CAT A&P Other Rad Studies (CT/US): Read By Radiologist, Radiology Report Reviewed CT/US Interpretation: Date of service: 03/30/2019. PROCEDURE: CT Abdomen and Pelvis without intravenous contrast. HISTORY: left sided flank/llq pain. COMPARISON: 01/23/2018. TECHNIQUE: Without contrast.. Contrast dose: 0. Rad iation dose: Total exam DLP = 749.32 mGy-cm. This CT exam was performed using one or more of the following dose reduction techniques: Automated exposure control, adjustment of the mA and/or kV according to patient size, and/or use of iterative reconstruction technique. FINDINGS: LOWER THORAX: Linear scar/atelectasis in right lower lobe. Small hiatal hernia. LIVER: Unremarkable. No gross lesion or ductal dilatation. GALLBLADDER AND BILE DUCTS: Unremarkable. PANCREAS: Unremarkable. No gross lesion or ductal dilatation. SPLEEN: Unremarkable. ADRENALS: Unremarkable. No mass. KIDNEYS AND URETERS: Unremarkable. No hydronephrosis. No solid mass. VASCULATURE: Unremarkable. No aortic aneurysm. There is atherosclerotic calcification of the abdominal aorta. BOWEL: The patient is status post sigmoid colectomy with reanastomosis. There is no bowel obstruction. There is mild diverticulosis of the distal descending colon proximal to the anastomosis. There is supraumbilical ventral herniation of a loop of transverse colon. APPENDIX: Unremarkable. Normal appendix. PERITONEUM: Supraumbilical ventral hernia containing a loop of nonobstructed transverse colon. LYMPH NODES: Unremarkable. No enlarged lymph nodes. BLADDER: Nondistended. REPRODUCTIVE: Hysterectomy. BONES: No acute fracture. OTHER FINDINGS: None. IMPRESSION: Status post sigmoid colectomy with reanastomosis. Supraumbilical ventral hernia containing a nonobstructed loop of transverse colon. No evidence of urinary calculus or urinary tract obstruction. Status post hysterectomy. Small hiatal hernia. No acute abnormality. Medical Decision Making Medical Decision Making: Plan: CAT A&P Labs UA Zofran 4mg IVP Protonix 40mg IVP IV Fluids abd pain /r/o colitis /diverticulits- labs neg. imaging neg. pain resolved. stable for dc facial swelling/joint pain - consitent with lupus flair. on rpednisone baseline. airway patent speaking full sentnces in nad. steirods iniated. pt uncomfortable with dc will obs. Disposition - Disposition Disposition: HOME/ ROUTINE Disposition Time: 20:00 Condition: STABLE - Clinical Impression Clinical Impression: SLE (systemic lupus erythematosus), Abdominal pain - Scribe Statement The provider has reviewed the documentation as recorded by the Sapphireibchristiano Massey All medical record entries made by the Sapphireibchristiano were at my direction and personally dictated by me. I have reviewed the chart and agree that the record accurately reflects my personal performance of the history, physical exam, medical decision making, and the department course for this patient. I have also personally directed, reviewed, and agree with the discharge instructions and disposition.
[2019-03-30] MEDS ORDERED: Sodium Chloride 0.9% 1,000 ML ONE (11:36)
[2019-03-30 12:01] LABS: BASO % 0.8 % (0.0-2.0); EOS # 0.1 K/uL (0.0-0.7); EOS % 2.6 % (0.0-4.0); LYMPH # 1.6 K/uL (1.0-4.3); LYMPH % 35.9 % (20.0-40.0); MEAN CELL VOLUME 88.2 fL (81.0-99.0); MEAN CORPUSCULAR HEMOGLOBIN 30.4 pg (27.0-31.0); MEAN CORPUSCULAR HGB CONC 34.5 g/dL (33.0-37.0); MEAN PLATELET VOLUME 7.4 fL (7.2-11.7); MONO # 0.6 K/uL (0.0-0.8); MONO % 13.9 % (0.0-10.0); NEUT # 2.1 K/uL (1.8-7.0); NEUT % 46.8 % (50.0-75.0); NRBC % 0.1 % (0.0-2.0); RBC 4.59 Mil/uL (3.80-5.20); RED CELL DISTRIBUTION WIDTH 15.2 % (11.5-14.5); WHITE BLOOD COUNT 4.5 K/uL (4.8-10.8)
[2019-03-30 12:16] LABS: ALB/GLOB RATIO 1.3 (1.0-2.1); ALBUMIN 4.7 g/dL (3.5-5.0); CALCIUM 10.2 mg/dl (8.6-10.4)
[2019-03-30 12:42] LABS: SQUAMOUS EPITHIAL 2 /hpf (0-5); URINE BACTERIA RARE (<OCC); URINE BILIRUBIN NEGATIVE (NEGATIVE); URINE BLOOD NEGATIVE (NEGATIVE); URINE CLARITY Clear (Clear); URINE COLOR Yellow (YELLOW); URINE GLUCOSE (UA) NORMAL (Normal); URINE LEUKOCYTE ESTERASE NEG Leu/uL (Negative); URINE PROTEIN 2+ mg/dL (NEGATIVE); URINE UROBILINOGEN NORMAL mg/dL (0.2-1.0)
[2019-03-30] MEDS ORDERED: Potassium Chloride 20 mEq ER Tab PO STA (13:08)
--- NOTE | 2019-03-30 13:09 | CT ---
Date of service: 03/30/2019 PROCEDURE: CT Abdomen and Pelvis without intravenous contrast HISTORY: left sided flank/llq pain COMPARISON: 01/23/2018 TECHNIQUE: Without contrast.. Contrast dose: 0 Radiation dose: Total exam DLP = 749.32 mGy-cm. This CT exam was performed using one or more of the following dose reduction techniques: Automated exposure control, adjustment of the mA and/or kV according to patient size, and/or use of iterative reconstruction technique. FINDINGS: LOWER THORAX: Linear scar/atelectasis in right lower lobe. Small hiatal hernia. LIVER: Unremarkable. No gross lesion or ductal dilatation. GALLBLADDER AND BILE DUCTS: Unremarkable. PANCREAS: Unremarkable. No gross lesion or ductal dilatation. SPLEEN: Unremarkable. ADRENALS: Unremarkable. No mass. KIDNEYS AND URETERS: Unremarkable. No hydronephrosis. No solid mass. VASCULATURE: Unremarkable. No aortic aneurysm. There is atherosclerotic calcification of the abdominal aorta. BOWEL: The patient is status post sigmoid colectomy with reanastomosis. There is no bowel obstruction. There is mild diverticulosis of the distal descending colon proximal to the anastomosis. There is supraumbilical ventral herniation of a loop of transverse colon. APPENDIX: Unremarkable. Normal appendix. PERITONEUM: Supraumbilical ventral hernia containing a loop of nonobstructed transverse colon. LYMPH NODES: Unremarkable. No enlarged lymph nodes. BLADDER: Nondistended REPRODUCTIVE: Hysterectomy BONES: No acute fracture. OTHER FINDINGS: None. IMPRESSION: Status post sigmoid colectomy with reanastomosis. Supraumbilical ventral hernia containing a nonobstructed loop of transverse colon. No evidence of urinary calculus or urinary tract obstruction. Status post hysterectomy. Small hiatal hernia. No acute abnormality.
[2019-03-30] MEDS ORDERED: MethylPREDNISolone 40 mg Vial IVP STA (13:46)
[2019-03-30] MEDS ORDERED: Potassium Chloride 20 mEq ER Tab PO ONE (14:03)
[2019-03-30] MEDS: Metoprolol Succinate 50 mg XL Tab PO SCH (18:20)
[2019-03-30] MEDS: Sodium Chloride 0.9% 1,000 ML IV SCH (18:21)
[2019-03-30 18:29] VITALS: RESP 20
[2019-03-30] MEDS: metroNIDAZOLE IV 500 mg/100 ml 250 MG in Premixed IV 1 EA IVPB SCH (19:36)
[2019-03-31] MEDS: metroNIDAZOLE IV 500 mg/100 ml 250 MG in Premixed IV 1 EA IVPB SCH ×3 (03:20→18:34)
[2019-03-31] MEDS: Sodium Chloride 0.9% 1,000 ML IV SCH ×2 (06:51→21:22)
[2019-03-31 07:09] LABS: CALCIUM 9.5 mg/dl (8.6-10.4)
[2019-03-31 07:14] LABS: INR 1.1; PARTIAL THROMBOPLASTIN TIME 37.9 SECONDS (21-34); PROTHROMBIN TIME 12.4 SECONDS (9.7-12.2)
[2019-03-31] MEDS: Metoprolol Succinate 50 mg XL Tab PO SCH (09:07)
[2019-03-31] MEDS: Multiple Vitamins Tab PO SCH (09:07)
[2019-03-31] MEDS ORDERED: LUBIPROSTONE PO SCH (10:00)
--- NOTE | 2019-03-31 16:49 | CP.PCM.PN ---
Subjective - Date & Time of Evaluation Date of Evaluation: 03/31/19 Time of Evaluation: 16:49 - Subjective Subjective: alert and oriented, denies abdominal pain or distress. Objective - Vital Signs/Intake and Output Vital Signs (last 24 hours): Temp Pulse Resp BP Pulse Ox 97.8 F 66 20 138/71 98 03/31/19 15:00 03/31/19 15:00 03/31/19 15:00 03/31/19 15:00 03/31/19 15:00 Intake and Output: 03/31/19 03/31/19 06:59 18:59 Intake Total 810 1680 Balance 810 1680 - Medications Medications: Current Medications Amlodipine Besylate (Norvasc) 10 mg PO DAILY [facility] Last Admin: 03/31/19 09:06 Dose: 10 mg Dicyclomine HCl (Bentyl) 20 mg PO DAILY [facility] Last Admin: 03/31/19 09:05 Dose: 20 mg Heparin Sodium (Porcine) (Heparin) 5,000 units SC Q12 [facility] Last Admin: 03/31/19 09:07 Dose: 5,000 units Sodium Chloride (Sodium Chloride 0.9%) 1,000 mls @ 75 mls/hr IV .[id number] [facility] Last Admin: 03/31/19 06:51 Dose: 75 mls/hr Metronidazole 250 mg/ (Miscellaneous) 50 mls @ 100 mls/hr IVPB Q8H [facility]; Protocol Last Admin: 03/31/19 11:30 Dose: 100 mls/hr Ceftriaxone Sodium 1 gm/ (Sodium Chloride) 100 mls @ 100 mls/hr IVPB DAILY [facility]; Protocol Last Admin: 03/31/19 10:20 Dose: 100 mls/hr Lactulose (Enulose) 20 gm PO HS PRN PRN Reason: Constipation Last Admin: 03/31/19 09:05 Dose: 20 gm Metoprolol Succinate (Toprol Xl) 50 mg PO DAILY [facility] Last Admin: 03/31/19 09:07 Dose: 50 mg Multivitamins (Hexavitamin) 1 tab PO DAILY [facility] Last Admin: 03/31/19 09:07 Dose: 1 tab Ondansetron HCl (Zofran Inj) 4 mg IVP Q8 PRN PRN Reason: Nausea/Vomiting Pneumococcal Polyvalent Vaccine (Pneumovax 23 Vaccine) 0.5 ml IM .ONCE ONE Stop: 04/01/19 10:01 Prednisone (Prednisone Tab) 5 mg PO DAILY [facility] Last Admin: 03/31/19 09:05 Dose: 5 mg - Labs Labs: 03/30/19 11:57 03/31/19 06:42 PT 12.4 SECONDS (9.7-12.2) H 03/31/19 06:42 INR 1.1 03/31/19 06:42 APTT 37.9 SECONDS (21-34) H 03/31/19 06:42 Assessment and Plan - Assessment and Plan (Free Text) Assessment: Patient is seen and examined. Denies abdominal rebeca or distress. Diet advanced to bland diet. Plan to discharge home as per DR Ivory if no pain with advanced diet. Advised to follow up in the office in 1 week
[2019-04-01] MEDS: metroNIDAZOLE IV 500 mg/100 ml 250 MG in Premixed IV 1 EA IVPB SCH (03:00)
[2019-04-01 08:23] VITALS: BP 121/71; PULSE 77; TEMP 98; O2SAT 100
[2019-04-01] MEDS: Multiple Vitamins Tab PO SCH (09:20)
[2019-04-01] MEDS: Metoprolol Succinate 50 mg XL Tab PO SCH (09:20)
[2019-04-01] MEDS: Sodium Chloride 0.9% 1,000 ML IV SCH (09:54)
[2019-04-01] MEDS ORDERED: Pneumococcal 23-Valent Vaccine IM ONE (10:00)
--- NOTE | 2019-04-01 21:35 | CP.PCM.HP ---
Present on Admission - Present on Admission Any Indicators Present on Admission: No Past Patient History - Infectious Disease Hx of Infectious Diseases: None - Past Medical History & Family History Past Medical History?: Yes - Past Social History Smoking Status: Former Smoker - CARDIAC Hx Hypercholesterolemia: Yes Hx Hypertension: Yes - PULMONARY Hx Asthma: Yes Hx Chronic Obstructive Pulmonary Disease (COPD): Yes - NEUROLOGICAL Hx Neurological Disorder: Yes Hx Vertigo: Yes - HEENT Hx HEENT Problems: Yes Hx Cataracts: Yes (S/P SURGERY) - RENAL Hx Chronic Kidney Disease: No - ENDOCRINE/METABOLIC Hx Endocrine Disorders: Yes Hx Systemic Lupus Erythematosus: Yes - HEMATOLOGICAL/ONCOLOGICAL Hx Anemia: Yes - INTEGUMENTARY Hx Dermatological Problems: No - MUSCULOSKELETAL/RHEUMATOLOGICAL Hx Arthritis: Yes - GASTROINTESTINAL Hx Diverticulitis: Yes Hx Gastritis: Yes - GENITOURINARY/GYNECOLOGICAL Hx Genitourinary Disorders: No - PSYCHIATRIC Hx Substance Use: No - SURGICAL HISTORY Hx Surgeries: Yes Hx Breast Biopsy: Yes (LEFT LUMPECTOMY) Hx Hysterectomy: Yes Other/Comment: COLON RESECTION - ANESTHESIA Hx Anesthesia: Yes Hx Anesthesia Reactions: No Hx Malignant Hyperthermia: No Meds Home Medications: Home Medication List Medication Instructions Recorded Confirmed Type Famotidine [Pepcid] 20 mg PO DAILY #20 tab 03/30/19 Rx Dicyclomine [Bentyl] 20 mg PO BID PRN #20 tab 03/31/19 Rx Allergies/Adverse Reactions: Allergies Allergy/AdvReac Type Severity Reaction Status Date / Time No Known Allergies Allergy Verified 11/28/18 08:22 Results - Vital Signs Recent Vital Signs: Last Vital Signs Temp 98 F 04/01/19 08:21 Pulse 77 04/01/19 08:21 Resp 20 04/01/19 08:21 BP 121/71 04/01/19 08:21 Pulse Ox 100 04/01/19 08:21 - Labs Result Diagrams: 03/30/19 11:57 03/31/19 06:42
--- NOTE | 2019-04-02 16:22 | HP ---
CHIEF COMPLAINT: Left lower quadrant abdominal pain. HISTORY OF PRESENT ILLNESS: This is an 83-year-old female well known to me with history of systemic lupus erythematosus, hypertension, hyperlipidemia, diverticulosis, and diverticulitis. She is compliant with her current medication and followup. The day before the admission, she developed left lower quadrant abdominal pain, dull, non-radiating, not associated with dysuria, hematuria or pyuria. There is no history of hematemesis, melena, or hematochezia. There is no history of diarrhea or constipation. There is no history of . The pain is nonpositional, not aggravated by any left leg movements. There is no history of radiation of the pain. There are no skin rashes in the area and she denies any history of cough, sore throat, or runny nose. She denies any history of nausea, vomiting, or diarrhea. She denies any hip pain, leg pain, or skin rash. There is no history of sneezing, itchy eyes, or itchy nose. There is no history of polyuria, polydipsia or polyphagia. There is no history of vertigo. ALLERGIES: UNKNOWN. CURRENT MEDICATIONS: At home, she is on Norvasc, Zantac, multivitamin, Toprol, Amitiza, Bentyl, vitamin D, Xanax, Pepcid. SOCIAL HISTORY: Nonsmoker and non-EtOH user. PHYSICAL EXAMINATION: GENERAL: An elderly female, is in no acute distress. VITAL SIGNS: Blood pressure 150/71, pulse 68, respiratory rate 20, and temperature 98. SKIN: She has moles. She has some . HEENT: Atraumatic and normocephalic. Negative pallor. Negative jaundice. Extraocular movements are intact. Oral cavity, edentulous. Poor oral hygiene. NECK: Supple. No JVD. No lymph node. No thyromegaly. No carotid bruits. CHEST WALL: Bilateral symmetrical expansion. No tenderness. No deformity. LUNGS: Clear. No rales. No rhonchi. CARDIOVASCULAR SYSTEM: PMI not localized. S1, S2, regular. No heave. No thrill. ABDOMEN: Soft and nontender. Bowel sounds are positive. No masses. No visceromegaly. RECTAL: No masses. No bleed. PELVIC: No vaginal discharge. No tenderness. Seen at the bedside. EXTREMITIES: No clubbing, cyanosis, or edema. CENTRAL NERVOUS SYSTEM: Awake, alert, and oriented x3. ASSESSMENT: 1. Nonspecific left lower quadrant abdominal pain today with the history of underlying diverticulosis unlikely to be any obstruction, unlikely to be mass. 2. Hypertension. 3. Systemic lupus erythematosus. 4. Osteoarthritis. PLAN: Admit. Detailed orders are written. Seen and examined. Waldemar Ivory MD
== END 2019-04-01 10:35 | disposition home or self-care (01) ==
LOC: C.ER 10:48 → C.9E 13:47 → C.3T 16:02
PROVIDERS: ADMIT Internal Medicine; ATTEND Internal Medicine
DX: M32.9 Systemic lupus erythematosus, unspecified (principal); R10.9 Unspecified abdominal pain; E78.00 Pure hypercholesterolemia, unspecified; E78.5 Hyperlipidemia, unspecified; I10 Essential (primary) hypertension; J44.9 Chronic obstructive pulmonary disease, unspecified; M19.90 Unspecified osteoarthritis, unspecified site; Z85.3 Personal history of malignant neoplasm of breast; Z87.891 Personal history of nicotine dependence; Z90.710 Acquired absence of both cervix and uterus
CPT/HCPCS: 36415; 74176; 80048; 80053; 81001; 83690; 85025; 85610; 85730; 96374; 97116; 97162; 99285; C9113; G0378; G8978; G8979; J0696; J1644; J2405; J2920; J7030